=== PATIENT | male | born 1980 | race Caucasian/White ===

== ENCOUNTER 2020-02-10 10:38 | Day surgery (SDC) | payer MEDICAID, SELFPAY ==
--- NOTE | 2020-02-03 15:41 | EKG12_ITS ---
Test Reason : PRE OP Blood Pressure : / mmHG Vent. Rate : 083 BPM Atrial Rate : 083 BPM P-R Int : 146 ms QRS Dur : 084 ms QT Int : 344 ms P-R-T Axes : 020 036 018 degrees QTc Int : 404 ms Normal sinus rhythm Normal ECG Confirmed by IGNACIO JACKSON, NAOMI ([id number]), general expeditor CIERA PABON ([id number]) on 02/04/2020 1:12:13 PM Referred By: Harsha Dinero Confirmed By:NAOMI PIERRE MD
[2020-02-03 16:46] LABS: Hematocrit 48.1 % (40-54); Hemoglobin 16.1 g/dL (13.0-16.5); Mean Corp Hgb Conc 33.5 g/dL (32-36); Mean Corpuscular Hgb 29.5 pg (27.0-32.0); Mean Corpuscular Volume 88.3 fL (80-94); Mean Platelet Vol. 10.4 fl (6.2-12.0); Platelet Count 296 K/mm3 (150-450); RBC Distribution Width CV 13.1 % (11.6-14.6); RBC Distribution Width SD 42.2 fl (35.1-43.9); Red Blood Count 5.45 M/mm3 (4.6-6.2); White Blood Count 9.5 K/mm3 (4.4-11.0)
[2020-02-03 17:33] LABS: AST(SGOT) 16 U/L (15-37); Alanine Aminotransfer ALT/SGPT 32 U/L (16-61); Albumin, Serum 3.4 g/dL (3.2-5.0); Alkaline Phosphatase 69 U/L (45-117); Bilirubin, Direct 0.11 mg/dL (0.00-0.30); Globulin 3.7 g/dL (2.2-4.2); Protein, Total 7.1 g/dL (6.4-8.2)
[2020-02-10] VITALS (7 sets, daily range): BP systolic 97–129; BP diastolic 64–96; PULSE 57–85; RESP 16–18; TEMP 25.5–36.6; O2SAT 92–100; BMI 32.0
[2020-02-10] MEDS: Lactated Ringers 1,000 ML 100 ML IV ×2 (11:26→14:16)
[2020-02-10] MEDS: Cefazolin 2 GM in 0.9% Normal Saline 100 ML IV (12:34)
[2020-02-10] MEDS: Bupiv/Epi 0.5% Mpf 30 ML Vial (12:58)
[2020-02-10] MEDS: Epinephrine (1 mg/ml) 1 MG/ML VIAL (12:58)
--- NOTE | 2020-02-10 13:50 | PCM.OPRPT ---
Report of Operation Date of Procedure: 02/10/20 Pre-Operative Diagnosis: SAIS, AC arthrosis, possible rotator cuff tear left shoulder Post-Operative Diagnosis: same with no rotator cuff tear and type 2 SLAP lesion Surgery/Procedure Performed:: ASD, Clara procedure, intra-articular debridement left shoulder heavy equipment diesel mechanic: Slava Renee Type of Anesthesia:: General/Regional Anesthesiologist: Keshav Castaneda - Admit VTE Documentation VTE Present on Admission: No VTE Mechan Device Prophylaxis: SCD's, Thigh High JASIEL Hose VTE Pharm Prophylaxis ordered?: No Reason prophylaxis not ordered:: Treatment Not Indicated
== END 2020-02-10 16:55 | disposition home or self-care (01) ==
LOC: SDC 10:39 → AC 10:39
PROVIDERS: Anesthesiology; Referring Provider Orthopaedic Surgery; Visit Provider Orthopaedic Surgery
PROC: (CPT 29827; principal; 2020-02-10 12:20)
DX: S43.432A Superior glenoid labrum lesion of left shoulder, initial encounter (principal); S43.422A Sprain of left rotator cuff capsule, initial encounter; M75.42 Impingement syndrome of left shoulder; E66.9 Obesity, unspecified; Z68.31 Body mass index [BMI] 31.0-31.9, adult; Z86.19 Personal history of other infectious and parasitic diseases; F17.210 Nicotine dependence, cigarettes, uncomplicated
CPT/HCPCS: 01630; 29824; 36415; 80076; 85027; 87635; 93005; C9803; J7120; J2405; U0003